=== PATIENT | male | born 1965 | race Caucasian/White ===

== ENCOUNTER → 2016-07-13 | Outpatient (CLI) | payer BC ==
--- NOTE | ~2016-07-13 | EKG ---
PATIENT: KATE BUNDY UNIT #: [id number] Ventricular Rate: 62 BPM Atrial Rate: 62 BPM P-R Interval: 172 ms QRS Duration: 96 ms Q-T Interval: 390 ms QTC Calculation(Bezet): 395 ms P Bridgman: 46 degrees Calculated R Bridgman: 53 degrees Calculated T Bridgman: 41 degrees Diagnosis Line: Normal sinus rhythm Diagnosis Line: Normal ECG Diagnosis Line: No previous ECGs available Diagnosis Line: Confirmed by ELZBIETA MULLIGAN MD ([id number]) on 07/14/2016 Diagnosis Line: 8:03:25 PM INTERPRETING MD: ISAAK GONZALEZ
[2016-07-13 17:27] LABS: BUN/CREATININE RATIO 16.36; CALCIUM SERUM 8.9 mg/dL (8.4-10.2); CREATININE SERUM 1.1 mg/dL (0.6-1.4); GLOM FILT RATE Estimated 76.8 mL/min (>60); POTASSIUM 3.9 mmol/L (3.5-5.1)
== END | disposition home or self-care (01) ==
LOC: CLAB 16:40
PROVIDERS: Orthopaedic Surgery
DX: Z01.818 Encounter for other preprocedural examination (principal); M65.9 Synovitis and tenosynovitis, unspecified
CPT/HCPCS: 36415; 80048; 93005